=== PATIENT | female | born 1975 | race African-American/Black ===

== ENCOUNTER 2016-10-09 22:41 | Emergency (ER) | payer OTHER | END 2016-10-09 23:35 | disposition left against medical advice (07) | LOC: D.ER 22:41 | DX: Z02.9 Encounter for administrative examinations, unspecified (principal) ==

== ENCOUNTER 2016-10-10 01:49 | Emergency (ER) | payer OTHER ==
[2016-10-10 02:32] LABS: BASOPHILS 0.1 % (0.0-2.0); EOSINOPHILS 0.4 % (0-7); HEMATOCRIT 39.9 % (36.0-48.0); IMMATURE GRANULOCYTES 0.3 % (0-5); MCH 26.8 pg (26.0-34.0); MCHC 32.6 g/dL (31.0-37.0); MCV 82.3 fL (80.0-100.0); MONOCYTES 6.8 % (2-11); NEUTROPHILS 78.4 % (40-80); PLATELET COUNT 212 10x3/uL (130-400); RBC 4.85 10x6/uL (4.00-5.40); RDW 15.1 % (11.5-14.5)
[2016-10-10 02:42] LABS: HCG SERUM NEGATIVE (NEGATIVE)
[2016-10-10 02:48] LABS: ALBUMIN 3.4 g/dL (3.4-5.0); ANION GAP 12.6 mmol/L (8-16); BILIRUBIN - TOTAL 0.42 mg/dL (0.2-1.3); CALCIUM 8.3 mg/dL (8.5-10.1); CARBON DIOXIDE 28.5 mmol/L (21.0-32.0); CREATININE - SERUM 1.1 mg/dL (0.6-1.3); POTASSIUM - SERUM 3.1 mmol/L (3.5-5.1); PROTEIN - SERUM 7.8 g/dL (6.4-8.2)
[2016-10-10 03:27] LABS: APPEARANCE CLOUDY (CLEAR); BILIRUBIN NEGATIVE (NEGATIVE); COLOR YELLOW (YELLOW); GLUCOSE NEGATIVE (NEGATIVE); KETONE NEGATIVE (NEGATIVE); LEUKOCYTE ESTERASE 1+ (NEGATIVE); NITRITE NEGATIVE (NEGATIVE); PH 5.5 (5.0-6.0); PROTEIN TRACE mg/dL (NEGATIVE); SPECIFIC GRAVITY 1.015 (1.005-1.020); UROBILINOGEN NORMAL (NORMAL)
[2016-10-10 03:29] LABS: UDS - AMPHET NEGATIVE QUAL (NEGATIVE); UDS - BARB NEGATIVE QUAL (NEGATIVE); UDS - BENZO NEGATIVE QUAL (NEGATIVE); UDS - COCAINE NEGATIVE QUAL (NEGATIVE); UDS - METH NEGATIVE QUAL (NEGATIVE); UDS - OPIATE POSITIVE QUAL (NEGATIVE); UDS - PCP NEGATIVE QUAL (NEGATIVE); UDS - THC NEGATIVE QUAL (NEGATIVE)
[2016-10-10 03:33] LABS: BACTERIA MANY /hpf (NONE SEEN)
== END 2016-10-10 04:35 | disposition home or self-care (01) ==
LOC: D.ER 01:49
PROVIDERS: Family Medicine
DX: R11.10 Vomiting, unspecified (principal); R19.7 Diarrhea, unspecified; N39.0 Urinary tract infection, site not specified; M79.7 Fibromyalgia

== ENCOUNTER → 2018-06-26 10:22 | Outpatient (CLI) | payer OTHER | END | disposition home or self-care (01) | LOC: D.RAD 10:15 | DX: Z02.71 Encounter for disability determination (principal) ==

== ENCOUNTER 2019-01-18 09:29 | Emergency (ER) | payer OTHER ==
[2019-01-18 09:34] VITALS: Wt 142.7 kg
[2019-01-18 10:00] LABS: BASOPHILS 0.4 % (0-2); EOSINOPHILS 2.4 % (0-7); HEMATOCRIT 40.4 % (36.0-48.0); HEMOGLOBIN 13.6 g/dL (12-16); IMMATURE GRANULOCYTES 0.5 % (0-5); LYMPHOCYTES 36.2 % (15-50); MCH 27.9 pg (26.0-34.0); MCHC 33.7 g/dL (31.0-37.0); MEAN PLATELET VOLUME 9.9 fL (7.4-10.4); MONOCYTES 7.3 % (2-11); NEUTROPHILS 53.2 % (40-80); PLATELET COUNT 216 10x3/uL (130-400); RBC 4.87 10x6/uL (4.00-5.40); RDW 15.4 % (11.5-14.5); WBC 5.5 10x3/uL (4.8-10.8)
[2019-01-18 10:12] LABS: ALKALINE PHOSPHATASE 89 U/L (46-116); ALT (SGPT) 22 U/L (10-68); BILIRUBIN - TOTAL 0.57 mg/dL (0.2-1.3); CALC OSMOLALITY 278 mosm/kg (275-300); CALCIUM 8.2 mg/dL (8.5-10.1); CARBON DIOXIDE 30.6 mmol/L (21.0-32.0); CHLORIDE - SERUM 104 mmol/L (98-107); CREATININE - SERUM 0.9 mg/dL (0.6-1.3); GLUCOSE 139 mg/dL (74-106); POTASSIUM - SERUM 4.5 mmol/L (3.5-5.1); PROTEIN - SERUM 7.5 g/dL (6.4-8.2); SODIUM 140 mmol/L (136-145); UREA NITROGEN 8 mg/dL (7-18); eGFR NON AFRICAN AMERICAN 72 mL/min (90-120)
[2019-01-18 10:15] LABS: AMYLASE - SERUM 37 U/L (25-115); LIPASE 70 U/L (73-393)
[2019-01-18 10:16] LABS: TROPONIN-I < 0.017 ng/mL (0.000-0.060)
[2019-01-18 10:30] LABS: HCG SERUM NEGATIVE (NEGATIVE)
[2019-01-18] MEDS ORDERED: ACETAMINOPHEN500 M1 PO (11:25)
[2019-01-18] MEDS ORDERED: IBUPROFEN800 MG PO (11:25)
[2019-01-18] MEDS ORDERED: CYCLOBENZAPRINE10 MG PO (11:25)
[2019-01-18 11:30] LABS: APPEARANCE CLEAR (CLEAR); BILIRUBIN NEGATIVE (NEGATIVE); COLOR YELLOW (YELLOW); GLUCOSE NEGATIVE (NEGATIVE); KETONE NEGATIVE (NEGATIVE); NITRITE NEGATIVE (NEGATIVE); PROTEIN NEGATIVE (NEGATIVE); SPECIFIC GRAVITY 1.005 (1.005-1.020); UROBILINOGEN NORMAL (NORMAL)
[2019-01-18 11:31] LABS: BACTERIA FEW /hpf (NONE SEEN); EPITHELIAL CELLS 0-5 /hpf (0-5); RED CELLS - URINE 0-5 /hpf (0-5); WHITE CELLS - URINE 0-5 /hpf (0-5)
[2019-01-18 12:29] VITALS: BP 154/87
== END 2019-01-18 12:30 | disposition home or self-care (01) ==
LOC: D.ER 09:29
PROVIDERS: Family Medicine
DX: R10.31 Right lower quadrant pain (principal)

== ENCOUNTER → 2019-01-29 11:00 | Outpatient (CLI) | payer OTHER ==
[~2019-01-29 11:00] MED LIST: ACETAMINOPHEN500 M1 PO; CYCLOBENZAPRINE10 MG PO; IBUPROFEN800 MG PO
== END | disposition home or self-care (01) ==
LOC: D.MAMMO 11:00
PROVIDERS: ATTEND Nurse Practitioner Family
DX: Z12.31 Encounter for screening mammogram for malignant neoplasm of breast (principal)

== ENCOUNTER → 2019-03-11 08:44 | Outpatient (CLI) | payer OTHER | END | disposition home or self-care (01) | LOC: D.US 08:44 | PROVIDERS: ATTEND Nurse Practitioner Family | DX: N63.21 Unspecified lump in the left breast, upper outer quadrant (principal) ==